=== PATIENT | male | born 1970 | race Caucasian/White ===

== ENCOUNTER 2017-08-28 14:59 | Emergency (ER) | payer OTHER ==
[~2017-08-28] VITALS: Ht 170.2 cm; Wt 76.4 kg
[2017-08-28 15:01] VITALS: Ht 170.2 cm; Wt 76.4 kg
[2017-08-28] MEDS ORDERED: IBUPROFEN 600 MG TAB PO ONE (15:30)
--- NOTE | 2017-08-28 15:35 | ERD ---
ER Documentation Chief Complaint Chief Complaint l. ankle pain s/p slip and fall, heard a "crack" HPI This is a 47-year-old male presenting to emergency department complaining of left lateral ankle pain status post inversion mechanism injury that occurred at work earlier today. Patient states that he has heard a crack. He states that he has restricted range of motion. He denies taking any medications for this ROS All systems reviewed and are negative except as per history of present illness. Medications Home Meds Active Scripts Hydrocodone/Acetaminophen ([place] 5-325 Tablet) 1 Each Tablet, 1 TAB PO Q6H Y for PAIN, #20 TAB Prov:DOROTHY GOODSON PA-C 08/28/17 Ibuprofen* (Motrin*) 600 Mg Tab, 600 MG PO Q6H Y for PAIN AND OR ELEVATED TEMP, #30 TAB Prov:DOROTHY GOODSON PA-C 08/28/17 Allergies Allergies: Coded Allergies: No Known Allergy (Unverified , 08/28/17) PMhx/Soc Medical and Surgical Hx: pt denies Medical Hx, pt denies Surgical Hx Hx Alcohol Use: No Hx Substance Use: No Physical Exam Vitals Vital Signs Date Time Temp Pulse Resp B/P Pulse Ox O2 Delivery O2 Flow Rate FiO2 08/28/17 15:01 968.1 81 20 122/81 100 Physical Exam General: WD/WN, in no apparent distress, non-toxic appearing HENT: NC/AT Eyes: Conjunctiva normal Neck: Supple Pulm: Clear to auscultation, normal labored breathing; no wheezing/rales/ rhonchi heard CV: [Good capillary refill] GI: Non-distended, no guarding Back: No masses Ext: Tender to palpation over the lateral malleolus and dorsal ankle Neuro: [plantar reflex intact, patellar reflex intact, +2 pedal pulses bilaterally, sensation intact] Skin: [intact] Psych: [Normal mood] Results 24 hrs Current Medications Medications (Trade) Dose Ordered Sig/Jeannine Route PRN Reason Start Time Stop Time Status Last Admin Dose Admin Ibuprofen (Motrin) 600 mg ONCE ONCE PO 08/28/17 15:30 08/28/17 15:31 DC 08/28/17 15:23 Procedures/MDM MDM: 47-year-old male presents to the ER with ankle pain due to an inversion injury patient likely has ankle avulsion fracture. There is no evidence of compartment syndrome, neurologic injury, vascular injury, open joint, open fracture, tendon laceration, or foreign body due to physical examination and diagnostic testing. XR of the ankle was done and unremarkable. Patient was placed in posterior ankle splint. Patient's extremity symptoms have stabilized while they have been evaluated in the department and are appropriate for outpatient follow up. Prescription ibuprofen was given to patient, discussed to return to the ED if not improving as expected or worsening symptoms Patient was neurovascularly intact pre and post treatment. Patient understood and agreed with this plan. X-ray Ankle 3V Interpreted by radiologist and myself: 1. Age indeterminate avulsion fracture fragments at the tip of the medial and lateral malleoli, greatest laterally measuring 3 mm. 2. Bimalleolar soft tissue swelling, greatest laterally. Splint Assessment: Neurovascularly intact post splint placement with good fit. Departure Diagnosis: Primary Impression: Ankle injury Condition: Stable DOROTHY GOODSON PA-C Aug 28, 2017 15:35
--- NOTE | 2017-08-28 16:10 | RADRPT ---
PROCEDURE: XR Ankle. CLINICAL INDICATION: Left ankle pain TECHNIQUE: 3 views of the left ankle were performed. COMPARISON: None. FINDINGS: There are age indeterminate small bone fragments at the tip of the medial and lateral malleoli, grea test laterally measuring 3 mm in size. Alignment is normal. Joint spaces are preserved. There is moderate bimalleolar soft tissue swelling, greatest laterally. IMPRESSION: 1. Age indeterminate avulsion fracture fragments at the tip of the medial and lateral malleoli, grea test laterally measuring 3 mm. 2. Bimalleolar soft tissue swelling, greatest laterally. RPTAT: UU .Mikey Campos MD, MD Date Time Electronically viewed and signed by .Mikey Campos MD, on 08/28/2017 16:10 .K/
[2017-08-28] MEDS ORDERED: IBUP-1542 PO (16:15)
[2017-08-28] MEDS ORDERED: HYDR-906 PO (16:15)
== END 2017-08-28 16:54 | disposition home or self-care (01) ==
LOC: FTE 14:59
DX: S99.912A Unspecified injury of left ankle, initial encounter (principal); W01.0XXA Fall on same level from slipping, tripping and stumbling without subsequent striking against object, initial encounter; Y92.89 Other specified places as the place of occurrence of the external cause
CPT/HCPCS: 73610